=== PATIENT | male | born 1950 | race Caucasian/White ===

== ENCOUNTER 2017-11-17 11:35 | Emergency (ER) ==
[2017-11-17 11:38] VITALS: BP 162/81; TEMP 98.7; BMI 31.1
--- NOTE | 2017-11-17 12:30 | ED.PDOC ---
General ED Provider: Dr. VICKY GRECO Chief Complaint: Back Pain Stated Complaint: Severe pain lower back. Onset 3 days ago. Denies knowledge of injury or precipitating factors. Describes discomfort in radiating posterior lat thigh to gastrocnemius MM regions bilat. Incidentally with ambulation experinces severe pain that causes him to sit down. Time Seen by Physician: 12:20 Mode of Arrival: Wheelchair Information Source: Patient, Other (Friend) Exam Limitations: No limitations Primary Care Provider: MENDOZA HENNING Referred to ED by: PCP Nursing and Triage Documentation Reviewed and Agree: Yes (c/o pain in lower back and both legs. states worse when he is standing.) Reviewed sepsis parameters & appropriate labs ordered?: Yes Does patient meet sepsis criteria?: No System Inflammatory Response Syndrome: Not Applicable Sepsis Protocol: For patient's 13 years and over: Temp is 96.8 and below OR 101 and greater Pulse >90 BPM Resp >20/minute Acutely Altered Mental Status Are patient's symptoms suggestive of a new infection, such as: -Pneumonia -Skin, Soft Tissue -Endocarditis -UTI -Bone, Joint Infection -Implantable Device -Acute Abdominal Infection -Wound Infection -Meningitis -Blood Stream Catheter Infection -Unknown Musculoskeletal Complaint Exam - Back Pain Complaint/Exam Mechanism of Injury: Reports: No known trauma Onset/Duration: 3 days Symptoms Are: Still present Timing: Constant Episodes Lasting: Minutes Initial Severity: Moderate Current Severity: None Location: Reports: Diffuse Character: Reports: Dull, Aching, Throbbing, Burning Aggravating: Reports: Movements, Bending, Walking Alleviating: Reports: Rest Associated Signs and Symptoms: Reports: Weakness, Numbness, Tingling Related History: Reports: Similar episode Related Surgical History: Reports: None Focal Tenderness: Yes Paraspinal Muscle Tenderness: Yes Paraspinal Muscle Spasm: Yes Scoliosis: Yes Review of Systems - Review Of Systems Constitutional: Reports: No symptoms Eyes: Reports: No symptoms Ears, Nose, Mouth, Throat: Reports: No symptoms Respiratory: Reports: No symptoms Cardiac: Reports: No symptoms GI: Reports: No symptoms : Reports: No symptoms Musculoskeletal: Reports: No symptoms, Muscle pain, Other (back pain ) Skin: Reports: No symptoms Neurological: Reports: No symptoms Endocrine: Reports: No symptoms Hematologic/Lymphatic: Reports: No symptoms All Other Systems: Reviewed and Negative Past Medical History - Past Medical History Previously Healthy: Yes Endocrine: Reports: None Cardiovascular: Reports: None Respiratory: Reports: None Hematological: Reports: None Gastrointestinal: Reports: None Genitourinary: Reports: None Neuro/Psych: Reports: None Musculoskeletal: Reports: None Cancer: Reports: None - Surgical History General Surgical History: Reports: None - Family History Family History: Reports: None - Social History Smoking Status: Current every day smoker Hx Substance Use: No Alcohol Screening: Heavy Physical Exam - Physical Exam Appearance: Ill-appearing, Obese Ill-appearing: Moderate Pain Distress: Moderate Eyes: ELVIN, EOMI, Conjunctiva clear ENT: Ears normal, Nose normal, Oropharynx normal Respiratory: Airway patent, Breath sounds clear, Breath sounds equal, Respirations nonlabored Cardiovascular: RRR, Pulses normal, No rub, No murmur GI/: Soft, Nontender, No masses, Bowel sounds normal, No Organomegaly Musculoskeletal: Normal strength (Marked pain to palpation of Lumbar spine region ), ROM intact, No edema, Limited ROM, Limited strength, Calf tenderness Skin: Warm, Dry, Normal color Neurological: Sensation intact, Motor intact (SLR pos at 45 deg), Reflexes intact, Cranial nerves intact, Alert, Oriented Psychiatric: Affect appropriate, Mood appropriate Interpretation - Radiology Interpretation Radiology Interpretation By: Radiologist Radiology Results: No acute changes Xray Comments: L5 Conpression fx, sub acute. deg joint disease Critical Care Note - Critical Care Note Total Time (mins): 60 Course - Course Hematology/Chemistry: 11/17/17 13:00 11/17/17 13:00 Orders, Labs, Meds: Lab Review 11/17/17 11/17/17 13:00 13:00 WBC 8.69 RBC 4.67 L Hgb 16.2 Hct 44.2 MCV 94.6 H MCH 34.7 H MCHC 36.7 H RDW Coeff of Moses 13.8 Plt Count 116 L Immature Gran % (Auto) 0.7 Neut % (Auto) 80.2 Lymph % (Auto) 9.0 L [place] % (Auto) 9.9 Eos % (Auto) 0.1 Baso % (Auto) 0.1 Immature Gran # (Auto) 0.1 Neut # (Auto) 7.0 H Lymph # (Auto) 0.8 [place] # (Auto) 0.9 Eos # (Auto) 0.0 Baso # (Auto) 0.0 Sodium 132 L Potassium 3.8 Chloride 95 L Carbon Dioxide 25 Anion Gap 15.8 BUN 6 L Creatinine 0.73 Estimated GFR (MDRD) 107.00 BUN/Creatinine Ratio 8.21 Glucose 102 Calcium 9.2 Total Bilirubin 0.9 AST 24 ALT 33 Alkaline Phosphatase 68 Total Protein 7.0 Albumin 3.3 L Globulin 3.7 Albumin/Globulin Ratio 0.89 Orders Category Date Time Status IV [ED IV/MEDIPORT/POWERPORT] .ONCE EMERGENCY 11/17/17 15:23 Active CBC W/ AUTO DIFF Stat LAB 11/17/17 13:00 Completed CMP [COMPREHENSIVE METABOLIC PANEL] Stat LAB 11/17/17 13:00 Completed 0.9 % Sodium Chloride [Saline Flush] MEDS 11/17/17 15:23 Discontinued 1 syr IVF PRN PRN Ketorolac Tromethamine [Toradol] MEDS 11/17/17 14:36 Discontinued 30 mg IM ONCE STA CT LUMBAR SPINE W/O CONTRAST Stat RADS 11/17/17 12:34 Completed Medications Discontinued Medications Generic Name Dose Route Start Last Admin Trade Name Freq PRN Reason Stop Dose Admin Ketorolac Tromethamine 30 mg 11/17/17 14:36 11/17/17 15:25 Toradol IM 11/17/17 14:37 30 mg ONCE STA Administration Sodium Chloride 1 syr 11/17/17 15:23 11/17/17 15:26 Saline Flush IVF 1 syr PRN PRN Administration To flush IV Vital Signs: Temp Pulse Resp BP Pulse Ox 11/17/17 11:36 98.7 F 98 H 16 162/81 H 97 Departure - Departure Time of Disposition: 16:00 Disposition: TSF SHORT-TRM HOSP Discharge Problem: Compression fracture of L5 lumbar vertebra, Low back pain, Degeneration of lumbar or lumbosacral intervertebral disc Condition: Good Pt referred to PMD for follow-up: No IPMP verified?: No Additional Instructions: Explained to patient findings and concern over Lumbar vertebral fracture. Recommend Orthop or Neurosurg consult. Patient is a [place] and would like to go to [facility]. Normally goes to [facility]/ Contacted provider there who advised to call ER at [facility]. Spoke with ER physician there who arranged for ER voucher so patient could go to closed ER for specialty care. Contacted [facility] and spoke with Rudolph Dawson who agreed to accept patient. Arrangement made for transfer.Explained to patient who agrees to transfer. Discharged in stable and satisfactory condition and transferred by [facility] service. Allergies/Adverse Reactions: Allergies No Known Allergies Allergy (Unverified 11/17/17 11:38) Transfer Form Completed: Yes Disposition Discussed With: Patient
--- NOTE | 2017-11-17 13:46 | CT ---
EXAM: CT lumbar spine without contrast. HISTORY: Low back pain and radiculopathy. COMPARISON: None available. TECHNIQUE: Multiple axial images of the lumbar spine were obtained without intravenous contrast. Im ages were reformatted in the sagittal and coronal planes. FINDINGS: There is mild inferior endplate compression of the L5 vertebral body with focal oblique karishma cency seen through the posterior inferior vertebral body. No significant retropulsion identified. V ertebral body heights are otherwise normal. There is approximately 0.4 cm anterolisthesis of L4 on L 5 and 0.2 cm retrolisthesis of L2 on L3. Alignment is otherwise normal. There is mild loss of disc height at L4-5. Disc heights are otherwise normal. T12-L1: No neural compromise. L1-2: Disc osteophyte formation with flattening of the ventral thecal sac. L2-3: Disc osteophyte formation and facet arthropathy with flattening of the ventral thecal sac and mild neural foraminal narrowing. L3-4: Disc osteophyte formation, facet arthropathy and thickening of ligamentum flavum with mild kingsley ral foraminal narrowing. L4-5: Disc osteophyte formation, facet arthropathy and thickening of ligamentum flavum with mild jesus tral canal stenosis and moderate, right greater than left, neural foraminal narrowing. L5-S1: Disc osteophyte formation and facet arthropathy with moderate left and mild right neural fora hali narrowing. IMPRESSION: 1. Inferior endplate compression fracture of L5 without retropulsion, which may be subacute. 2. Multilevel degenerative changes as described.
[2017-11-17] MEDS ORDERED: TORADOL IM STA (14:36)
== END 2017-11-17 16:05 | disposition short-term general hospital (02) ==
LOC: ED 11:35
DX: S32.050A Wedge compression fracture of fifth lumbar vertebra, initial encounter for closed fracture (principal); M51.36 Other intervertebral disc degeneration, lumbar region; M54.5 Low back pain; F17.210 Nicotine dependence, cigarettes, uncomplicated
CPT/HCPCS: 36415; 80053; 85025; 96375; 99285